=== PATIENT | female | born 1955 | race Caucasian/White ===

== ENCOUNTER → 2023-04-11 11:04 | Outpatient (CLI) | payer MEDICARE, OTHER, SELFPAY ==
[2023-04-11 12:42] LABS: Add Manual Diff / Slide Review NO; Basophils Absolute Auto 0 /uL (0-100); Basophils Percent Auto 0.5 % (0-2); Eosinophils Absolute Auto 100 /uL (0-450); Eosinophils Percent Auto 1.3 % (2-4); Hematocrit 37.7 % (36-46); Hemoglobin 13.1 g/dL (12.0-16.0); Lymphocytes Absolute Auto 1300 /uL (1100-4500); Lymphocytes Percent Auto 26.5 % (25-40); Mean Corpuscular HGB Conc 34.8 % (30-36); Mean Corpuscular Hemoglobin 31.4 PG (26-34); Mean Corpuscular Volume 90.2 fL (80-100); Monocytes Absolute Auto 600 /uL (0-900); Monocytes Percent Auto 11.3 % (3-14); Neutrophils Absolute Auto 3000 /uL (1500-7000); Neutrophils Percent Auto 60.4 % (50-75); Platelet Count 332 X10^3/uL (150-400); Red Blood Cell Count 4.18 X10^6/uL (4.0-5.2)
[2023-04-11 13:02] LABS: BUN Creatinine Ratio 20.7 (6-22); Blood Urea Nitrogen 12 mg/dL (7-17); Calcium 9.7 mg/dL (8.4-10.2); Carbon Dioxide 25 mmol/L (22-32); Chloride 92 mmol/L (98-107); Estimated Glomerular Filt Rate > 60 mL/min (>60); Glucose 97 mg/dL (80-110); HEMOLYSIS < 15 (0-50); Sodium 126 mmol/L (137-145)
[2023-04-11 13:03] LABS: Potassium 5.4 mmol/L (3.4-5.1)
[2023-04-11 14:31] LABS: Appearance Urine UA CLEAR; Bilirubin Urine UA NEGATIVE (NEGATIVE); Color Urine UA YELLOW; Glucose Urine UA NEGATIVE (Negative); Ketones Urine UA NEGATIVE (NEGATIVE); Leukocyte Esterase Urine UA NEGATIVE (NEGATIVE); Nitrite Urine UA NEGATIVE (Negative); Occult Blood Urine UA NEGATIVE (Negative); Protein Urine UA NEGATIVE (Negative); Urobilinogen Urine UA 0.2 E.U./dL (0.2)
[2023-04-12 07:07] LABS: x Labcorp Estim. Avg Glu (eAG) 114 mg/dL (.); x Labcorp Hemoglobin A1c 5.6 % (4.8-5.6)
== END ==
PROVIDERS: PCP Student in an Organized Health Care Education/Training Program; Referring Provider Orthopaedic Surgery; Visit Provider Orthopaedic Surgery
DX: Z01.818 Encounter for other preprocedural examination (principal); R73.9 Hyperglycemia, unspecified; Z01.812 Encounter for preprocedural laboratory examination; N39.0 Urinary tract infection, site not specified; Z77.018 Contact with and (suspected) exposure to other hazardous metals
CPT/HCPCS: 36415; 80048; 81003; 83036; 85025; 93005

== ENCOUNTER 2023-06-14 06:25 | Day surgery (SDC) | payer MEDICARE, OTHER, SELFPAY ==
[2023-05-28 07:47] VITALS: BMI 18.6
[2023-06-14] VITALS (12 sets, daily range): BP systolic 125–190; BP diastolic 72–92; PULSE 68–87; RESP 12–20; TEMP 36.3–37.1; O2SAT 97–100; BMI 18.3
--- NOTE | 2023-06-14 | DI.RAD.S_ITS ---
PROCEDURE: XR HIP W PEL IF DONE RT 2V INDICATIONS: total hip arthroplasty placement TECHNIQUE: 2 views of the hip were acquired. COMPARISON: None. FINDINGS: Fluoroscopic guidance utilized for a right total hip arthroplasty. The component appears well aligned. IMPRESSION: Fluoroscopic guidance. Dictated by: Micah Hassan M.D. on 06/14/2023 at 10:50 Approved by: Micah Hassan M.D. on 06/14/2023 at 10:50
--- NOTE | 2023-06-14 06:00 | DI.RAD.S_ITS ---
PROCEDURE: XR HIP W PEL IF DONE RT 2V INDICATIONS: Right total hip arthroplasty TECHNIQUE: 2 views of the hip were acquired. COMPARISON: [facility], , XR HIP W PEL IF DONE RT 2V, 06/14/2023, 9:05. FINDINGS: Bones: Right total hip arthroplasty in good position. Left hip arthroplasty unchanged. Pelvic ring intact Soft tissues: No suspicious soft tissue calcifications or masses. Overlying postprocedural soft tissue air IMPRESSION: Total right hip arthroplasty in good position Approved by: Vaughn Washington M.D. on 06/14/2023 at 10:58
[2023-06-14] MEDS: CELECOXIB 200 MG CAPSULE PO (06:46)
[2023-06-14] MEDS: ACETAMINOPHEN 325 MG TABLET 975 MG PO (06:46)
[2023-06-14] MEDS: LACTATED RINGERS 1,000 ML 42 ML IV ×2 (06:49→09:56)
[2023-06-14] MEDS: VANCOMYCIN 1,000 MG/200 ML PIGGYBACK 200 MG IV (07:08)
--- NOTE | 2023-06-14 07:42 | P.OP_ITS ---
Operative Date/Time/Diagnoses Date of procedure: 06/14/23 Time of procedure: 08:00 Pre-op diagnosis: Severe right hip OA Post-op diagnosis: same Procedure & Clinicians Procedure: Right total hip arthroplasty anterior approach Same procedure as scheduled: Yes Indications: The patient has had progressively worsening right hip pain with radiographic changes consistent with arthritis. Non-operative management has failed and the patient has requested total hip replacement. The risks, benefits and alternatives to surgery were discussed with the patient prior to proceeding. Risks discussed included, but were not limited to, failure to relieve pain, leg length discrepancy, dislocation, stiffness, infection, nerve damage, deep venous thrombosis, pulmonary embolism, stroke, coma, heart attack, permanent paralysis and , as well as the potential need for eventual revision of the prosthetic. Surgeon: Tana Whitehead Legal Financial Specialist: Israel Camilo Anesthesia Type: General and Spinal Operative Notes Findings: Right total hip arthroplasty anterior approach Closure Type: primary Specimen(s): none sent Prosthetic devices, grafts, tissues, transplants, or devices: [employer] R3 50 cup, neutral poly liner, 32 x -3 Oxinium head,two 6.5 mm screws, size 1 standard collar polar stem Estimated Blood Loss (mL): 250 Blood products transfused: none Procedure in detail: The patient was brought to the operating room. Patient was carefully positioned in the supine position. Time-out was performed and antibiotics were given. Anesthesia was induced. She was positioned in the on the table in order to allow hyperextension of the hip. The right lower extremity was prepped and draped in a standard sterile fashion. An anterior right hip incision was made 1 fingerbreadth lateral to the anterior superior iliac spine and extended distally towards the greater trochanter. Dissection was carried out through skin and subcutaneous tissues. Superficial hemostasis was achieved. The fascia over the tensor fascia zach was defined and incised with a knife. Two Allis clamps were used to grasp the fascia. Tensor fascia zach was retracted laterally. A gelpi retractor was placed. Dissection was carried out down along the neck. The circumflex vessels were carefully identified and cauterized with the Aqua Mantis. There was good visualization of the femoral neck. A Cobra was placed superior to the neck and the gluteus fibers were carefully stripped from that superior aspect of the capsule. A 2nd retractor was placed along the inferior aspect of the neck. The rectus insertion along the capsule was partially released. A 3rd retractor that was then gently placed over the rim of the acetabulum under the rectus. Capsule was carefully incised and released from the intertrochanteric line circumferentially superior to the mid sagittal line and inferiorly to the mid sagittal line until the lesser trochanter was palpable. A tag stitch was placed both in the superior and inferior limb of the capsular insertion. Along the acetabulum capsule was also released up to the mid sagittal 12:00 position. A portion of the labrum was resected. A saw was used to perform an osteotomy at the level of the intertrochanteric line and the junction of the superior femoral neck leaving approximately 1 finger breath of residual inferior neck above the lesser trochanter. A 2nd cut was made along the femoral neck at the base of the head and a napkin ring of neck was removed. Corkscrew was placed in the femoral head and the head was removed without difficulty. Retractors were then repositioned around the acetabulum. Residual labrum was resected and additional osteophytes were removed. A reamer that was 4 mm below the templated size was placed by hand in the acetabulum and it was reamed to centralize the acetabulum. It was then reamed up to 2 under the templated size and fluoroscopy was brought in to confirm the position of the reaming and depth of reaming. I reamed 1 under the anticipated size and touched the rim with line to line reaming. A trial cup was placed and noted that it was appropriately sized and fluoroscopy confirmed position and depth. The component was open and inserted without diff iculty fluoroscopic imaging was used to confirm that the cup had been adequately seated and was well positioned. It was further stabilized with 2 screws. Neutral poly liner was placed. The cup was tested and noted to be stable. Attention was then directed to the femur. The femur was gently hyperextended additional capsular release was performed as needed in order to allow adequate visualization of the proximal femur with elevation of the femur. Patient was placed in a hyperextended slightly adducted position with maximum external rotation. Box osteotome was used to check for any residual neck as well as sclerotic bone along the trochanter. [place] pepper was placed in the femur. Additional broaching was performed. Canal finder was used to determine the alignment of the canal and position. Size 1 broach was placed. The canal was then appropriately broached up to the templated size as long as there was adequate stability of the broach and serial advancement of the broach without excessive impingement. Specific attention was directed at avoiding varus attempting to direct the distal aspect of the broach more anteriorly and avoiding excessive anteversion. Trial reduction showed acceptable range of motion, good stability, no posterior impingement, restorationism of leg length and appropriate lateral shuck. I also hyperflexed the hip and checked that there was no impingement anteriorly and there was good stability with flexion, adduction and internal rotation. Marcaine and Exparel were injected. The stem was placed without difficulty. Repeat trial reduction and x-ray showed acceptable overall position, length, and no evidence of the femoral fracture. Final head was placed. Wound was meticulously irrigated with normal saline. The hip was reduced and additional Exparel and Marcaine were injected. The capsule was closed with interrupted nonabsorbable sutures. The fascia of the tensor was closed with interrupted and running Vicryl. No drain was placed. Any tensor fascia zach muscle that appeared to be contused or injured which was a minimal amount was carefully resected. Capsule around the tensor was injected with Exparel and Marcaine. The skin was closed with barbed stitches for the subcutaneous tissue and skin. We also used surgical glue. The wound was dressed sterilely. Brief Betadine soak was also used and was meticulously irrigated with normal saline. Patient was transferred to recovery room in satisfactory condition. Complications: none Post-operative Condition: stable Disposition: Acute Care Plan for aftercare: The patient will be maintained on a standard total hip replacement protocol with weight bearing as tolerated and anterior hip precautions. The patient will receive Aspirin and sequential compression devices for DVT prophylaxis. The patient will be discharged home when safe for the home environment.
--- NOTE | 2023-06-14 07:42 | PM.PREOP ---
Pre-operative Note Interval Note History & Physical reviewed/Exam performed by Physician: Yes Changes to H&P: No
[2023-06-14] MEDS: CEFAZOLIN 2 GM/100 ML PREMIX 100 ML IV ×3 (08:00→23:19)
--- NOTE | 2023-06-14 08:33 | SUR.OPER ---
Supine on padded Kinderhook table with bilateral legs secured in padded positioning boots and suspended in positioning spars, operative leg in traction per surgeon. Head on one pillow. Arm on non-operative side secured on padded armboard <90 degrees abduction. Arm on operative side padded and resting across chest then secured with tape over sheet. Padded perineal post in place per surgeon.
[2023-06-14] MEDS: TRANEXAMIC ACID 1,000 MG VIAL 2000 MG INJ ×2 (08:40→09:54)
[2023-06-14] MEDS: BUPIVACAINE 0.25% (PF) 30 ML, EPINEPHrine 0.3 MG INJ (08:41)
[2023-06-14] MEDS: BUPIVACAINE LIPOSOME 266 MG/20 ML VIAL INJ (09:55)
[2023-06-14] MEDS: HYDROMORPHONE 1 MG INJ IV ×4 (10:33→10:48)
[2023-06-14] MEDS: fentaNYL 100 MCG/2 ML INJ IV ×3 (10:49→10:59)
--- NOTE | 2023-06-14 11:29 | SUR.PHASEI ---
Dr Garay notified of blood pressure 173/84. No new orders. Dr Garay instructed no blood pressure medication to be given.
[2023-06-14] MEDS: ACETAMINOPHEN 325 MG TABLET 650 MG PO ×3 (12:01→23:19)
[2023-06-14] MEDS: IBUPROFEN 400 MG TABLET PO ×4 (12:01→23:19)
[2023-06-14] MEDS: LACTATED RINGERS 1,000 ML 100 ML IV ×2 (12:01→20:43)
--- NOTE | 2023-06-14 15:10 | PT.IIE ---
Current Diagnoses Unilateral primary osteoarthritis, right hip (06/14/23) Surgery Performed Operation Date: 06/14/23 07:45 Actual Procedures p Total Hip Arthroplasty/Anterior Approach(Right) - Tana Whitehead MD Surgical History (Last Updated 05/28/23 @ 08:07 by Sree Miranda, RN) History of colonoscopy History of left hip replacement Medical History (Last Updated 05/28/23 @ 08:04 by Sree Miranda, MILLER) Acid reflux Physical Therapy Inpatient Evaluation/Re-Eval M1 PT/OT-IP Prior Functional Status Start: 06/14/23 15:19 Freq: NEEDED Status: Active Protocol: Document 06/14/23 15:19 AB (Rec: 06/14/23 15:57 AB [id number]) Medical Review Prior Functional Status Medical History Reviewed Yes Communication Pt is able to express all needs. Mobility and Gait Pt was ambulating independently prior to surgery . Activities of Daily Living and IADL's IND with all ADLs and IADLs. Social History Household Members spouse Living Arrangements House Number of Floors (Floors) Two Floors Number of Stairs To Enter/Railing? 2 NETTE without hand rails Home Environment High Toilet,Walk in Shower, Built-In Shower Seat Home Equipment Front Wheel Walker,Grab Bars In Shower Additional Social History Comment Pt lives with spouse who can assist 02/04 if needed. Their bedroom is on the 2nd floor which is 14 steps with right hand rail. They may be able to accommodate her on the first floor (sleep in recliner, however 1st floor bathroom is tub/shower combo). M2 PT-IP Current Condition Start: 06/14/23 15:19 Freq: NEEDED Status: Active Protocol: Document 06/14/23 15:19 AB (Rec: 06/14/23 15:57 AB [id number]) Physical Therapy Current Condition Current Condition Evaluation Date 06/14/23 Treatment Diagnosis s/p right anterior TOM Onset Date 06/14/23 M3 PT-IP Subjective Start: 06/14/23 15:19 Freq: NEEDED Status: Active Protocol: Document 06/14/23 15:19 AB (Rec: 06/14/23 15:57 AB [id number]) Subjective Physical Therapy Visit Type Type Initial Evaluation Visit Start Time 13:59 Visit Stop Time 15:10 Total Visit Minutes 71 Physical Therapy Visit Comments Patient Comments Pt presents semi supine in bed and is agreeable to PT eval this morning. She reports her RLE is still feeling a little numb but denies any other symptoms. Therapy Pain Assessment Pain When Pain Assessed During Exercise Pain Present Pain Present Pain Reported Location Right Hip Intensity 3 Scale Used Numeric (0 - 10) Pain Management Techniques Modification of Treatment M4 PT-IP Mobility and Gait Start: 06/14/23 15:19 Freq: NEEDED Status: Active Protocol: Document 06/14/23 15:19 AB (Rec: 06/14/23 15:57 AB [id number]) PT-Bed Mobility Assessment Rolling Type of Rolling Bilateral Level of Assist Standby Assistance Supine to Sit Supine to Sit Standby Assistance Sit to Supine Sit to Supine Standby Assistance Scooting Scooting to Edge of Bed Standby Assistance PT-Transfer Assessment Sit to and From Stand Sit to and from Stand Standby Assistance,Use of Upper Extremities Equipment Transfer Assistive Device Front Wheeled Walker Transfers Transfer Destination Bed,Chair,Toilet Transfer Technique Stand Step Pivot Transfer Ability Level of Assist Standby Assistance,Use of Upper Extremities Comments Mobility Comments BP was assessed in supine, sitting and standing, with no abnormalities noted and pt denying symptoms of lightheadedness or dizziness throughout session. The pt was able to perform bed mobility with SBA, but required use of gait belt to help mobilize RLE due to weakness. Once at EOB, the pt reports needing to use bathroom, therefore she performed STS with SBA using FWW, and was able to ambulated 10ft to transfer to toilet with SBA. Pt performed STS from toilet with FWW and transferred to chair. After a break, the pt completed ambulation and stairs as below . Upon returning to room, pt performed sit<>supine with SBA . At end of session, pt's needs were met, call light was placed within reach, and is at bedside. Gait Assessment Gait Gait Assistance Required: Standby Assistance Distance (Feet) 150 Able to Maintain Weight Bearing Status Yes During Gait Assistive Devices Assistive Device Gait Belt,Front Wheeled Walker Gait Deviations General Gait Pattern Within Normal Limits,Antalgic, Decreased Stride Length, Decreased Feet Clearance, Flexed Trunk,Step-to Gait Factors Limiting Gait Function Factors Limiting Gait Function Decreased Activity Tolerance, Decreased Strength,Limited Range of Motion,Pain Comments Gait Comments Gait deviations are consistent with surgical procedure and precautions. Stair Climbing Assessment Evaluation Level of Assist On Stairs Standby Assistance Devices Stair Climbing Assistive Devices Left Railing Technique/Endurance Stair Climbing Direction Ascend and Descend Stair Climbing Technique Step to Step Number of Steps Climbed 3 Query Text: Stair Climbing Set # Repetitions (reps) 1 Comments Stair Climbing Comments Pt is able to ascend/descend 3 steps with 1 hand rail after education regarding leading with nonsurgical side to ascend and with surgical side to descend. After completing 1 set, pt reports 4/10 pain in hip, therefore would not to attempt additional sets today. PT-Balance Assessment Sitting Balance and Reactions Static Sitting Balance Ability Normal Dynamic Sitting Balance Ability Good Standing Balance and Reactions Static Standing Balance Ability Good Dynamic Standing Balance Ability Fair Device Used FWW M5 PT-IP Objective Assessments Start: 06/14/23 15:19 Freq: NEEDED Status: Active Protocol: Document 06/14/23 15:19 AB (Rec: 06/14/23 15:57 AB [id number]) Orientation Orientation/Cognition Level of Alertness Alert Orientation Name,Age,Birthday,Month,Date, Year,Day of Week,Place, Situation Language Function Ability No Deficits Noted Safety Awareness Understands Safety Issues Memory Description No Deficits Noted Comments Pt is able to recall precautions and education provided at end of session. Gross Range of Motion Upper Extremity ROM Assessment Within Functional Limits Lower Extremity ROM Assessment Right Impaired Strength Upper Extremity Strength Assessment Within Functional Limits Lower Extremity Strength Assessment Right Impaired M6 PT-IP Treatment Start: 06/14/23 15:19 Freq: NEEDED Status: Active Protocol: Document 06/14/23 15:19 AB (Rec: 06/14/23 15:57 AB [id number]) Physical Therapy Treatment Education Education Provided Precautions,Weight Bearing Status,Post-Op Packet,Safety Brace Education Patient,Caregiver M7 PT-IP Assessment and Plan Start: 06/14/23 15:19 Freq: NEEDED Status: Active Protocol: Document 06/14/23 15:19 AB (Rec: 06/14/23 15:57 AB [id number]) PT Summary Assessment and Plan Potential Rehabilitation Potential Good Status of Condition at Evaluation Stable Summary Impairments Pain,ROM,Strength,Balance,Bed Mobility,Transfers,Gait, Activity Tolerance Assessment Summary Margaret Farrar is a 67 year old female patient who is s/p right anterior hip TOM performed on 06/14/23. Today's PT evaluation revealed signs and symptoms consistent with this surgical procedure including RLE ROM deficits, weakness and pain symptoms, which are limiting her ability to perform functional mobility independently. The pt currently requires SBA for all functional mobility, including use of a FWW for STS , transfers and ambulation. She was able to ambulated 150ft with FWW and ascend/ descend 3 steps with 1 hand rail. Based on her current level of function, PT recommends discharge to home with assistance and outpatient PT. The pt would benefit from skilled PT during her hospitalization to improve to her highest level of function. Goals Bed Mobility Goal Independent Transfer Goal Independent Gait Goal Independent,Front Wheel Walker Gait Distance 200 Days to Meet Goals 5 Frequency of Treatment Frequency Of Treatment Twice a Day Treatment Plan Physical Therapy Treatment Plan Bed Mobility Training,Transfer Training,Gait Training, Therapeutic Exercise,Balance Retraining,Post Op Education, Discharge Planning,Hot or Cold Pack,Neuromuscular Re-ed, Coordination Retraining,Manual Therapy Precautions Anterior Hip Precautions No Hip Extension,No Hip External Rotation Weight Bearing Status Weight Bearing Status Weight Bear as Tolerated Recommendations To Nursing Amount of Assist Needed Standby Assistance,1 Person Assist Discharge Recommendations PT Discharge Recommendations Home with Assistance, Outpatient PT Transportation Needs at Discharge Private Vehicle
[2023-06-14] MEDS: OXYCODONE IR 5 MG TABLET PO (15:38)
--- NOTE | 2023-06-14 16:03 | PC.NURSE ---
Day shift: This RN assumed care of patient at 1600 from RN Kory Webb who admitted patient from PACU at 1150AM. 4/5 strength on RLE, no numbness. Rating pain 5/10, 5mg oxy given. Brown mottling noted all over patient's back - patient reports that was not there before surgery. Not red, raised, painful or itching. Notified ARTURO Argueta via phone who stated she would look at it tomorrow AM. Pt OOB with 1PA + FWW. Voiding in toilet. Tolerating general diet. Will continue to monitor.
--- NOTE | 2023-06-14 16:49 | OT.IP.EVAL ---
Current Diagnoses Unilateral primary osteoarthritis, right hip (06/14/23) Surgery Performed Operation Date: 06/14/23 07:45 Actual Procedures p Total Hip Arthroplasty/Anterior Approach(Right) - Tana Whitehead MD Past Medical History (Last Updated 05/28/23 @ 08:04 by Sree Miranda, RN) Acid reflux Surgical History (Last Updated 05/28/23 @ 08:07 by Sree Miranda, RN) History of colonoscopy History of left hip replacement Occupational Therapy Inpatient Evaluation/Re-Eval M1 PT/OT-IP Prior Functional Status Start: 06/14/23 16:49 Freq: NEEDED Status: Active Protocol: Document 06/14/23 16:15 [facility]3] (Rec: 06/14/23 17:03 [facility]3] [id number]) Medical Review Prior Functional Status Medical History Reviewed Yes Communication Pt is able to express all needs. Mobility and Gait Pt was ambulating independently prior to surgery . Activities of Daily Living and IADL's IND with all ADLs and IADLs but had pain. Social History Household Members spouse Living Arrangements House Number of Floors (Floors) Two Floors Number of Stairs To Enter/Railing? 2 NETTE without hand rails Home Environment High Toilet,Walk in Shower, Built-In Shower Seat Home Equipment Front Wheel Walker,Grab Bars In Shower Additional Social History Comment Pt lives with spouse who can assist 02/04 if needed. Their bedroom is on the 2nd floor which is 14 steps with right hand rail. They may be able to accommodate her on the first floor (sleep in recliner, however 1st floor bathroom is tub/shower combo). M2 OT-IP Current Condition Start: 06/14/23 16:49 Freq: Status: Active Protocol: Document 06/14/23 16:15 [facility]3] (Rec: 06/14/23 17:03 [facility]3] [id number]) Occupational Therapy Current Condition Current Condition Evaluation Date 06/14/23 Treatment Diagnosis S/P R TOM anterior approach Diagnosis Onset Date 06/14/23 Post Operative Precautions Anterior Hip Precautions No Hip Extension,No Hip External Rotation M3 OT- IP Subjective and Pain Start: 06/14/23 16:49 Freq: Status: Active Protocol: Document 06/14/23 16:15 [facility]3] (Rec: 06/14/23 17:03 [facility]3] [id number]) OT- Subjective Occupational Therapy Visit Type Type Initial Evaluation Visit Start Time 16:15 Visit Stop Time 16:49 Total Visit Minutes 34 Occupational Therapy Visit Comments Patient Comments Pt agreed to get up for dinner . Patient/Caregiver Goals TO go home. OT Pain Assessment Pain When Pain Assessed During Mobility Pain Present Pain Present Pain Reported Location Right Hip Intensity 5 Scale Used Numeric (0 - 10) M4 OT- IP ADL's Start: 06/14/23 16:49 Freq: Status: Active Protocol: Document 06/14/23 16:15 [facility]3] (Rec: 06/14/23 17:03 [facility]3] [id number]) OT [id number] Comments OT Self-Feeding Comments Not at meal time, no issues anticipated. OT ADL-Grooming Comments OT Grooming Comments Pt states did earlier. OT ADL-Oral Care Comments Oral Care Comments Pt states did earlier. OT ADL-Dressing General Eval Lower Body Dressing Ability Moderate Assistance Comments OT Dressing Comments At this time due to pain, pt needing assist to get clothing items over her feet. Educated pt on LB dressing equipment, otherwise her is available to assist . OT ADL-Toileting Comments OT Toileting Comments Not performed. Pt would benefit from a BSC at home as the toilet is 30ft away from the recliner if sleeping downstairs. OT ADL-Bathing Comments OT Bathing Comments A shower chair would be beneficial for the pt. M5 OT- IP IADL's Start: 06/14/23 16:49 Freq: Status: Active Protocol: Document 06/14/23 16:15 [facility]3] (Rec: 06/14/23 17:03 [facility]3] [id number]) OT-Instrumental Activities of Daily Living Deficits IADL Deficits Identified Deficits Home Safety Awareness Awareness of Need for Assistance at Home Good Awareness Ability to Problem Solve Emergency Able to Problem Solve Situations Home Safety Comments Pt a little groggy at this time as just having surgery today and her will assist at home for her needs. M6 OT- IP Functional Cognition Start: 06/14/23 16:49 Freq: Status: Active Protocol: Document 06/14/23 16:15 [facility]3] (Rec: 06/14/23 17:03 [facility]3] [id number]) Cognitive Factors Limiting Selfcare Function Cognitive Ability Level of Alertness Alert Patient Orientation Name,Age,Birthday,Month,Date, Year,Day of Week,Place, Situation Attention Span Ability Capable of Focused Attention, Capable of Sustained Attention Ability to Follow Commands Able to Follow One Step Commands Safety Awareness Decreased Ability to Apply Precautions Cognitive Comments Cognitive Assessment Comments Pt still groggy from surgery and needing reminders of how to incorporate her hip precautions for ADL and mobility needs. OT- Vision and Hearing OT- Hearing Assessment OT- Hearing Assessment WFL OT- Vision Assessment Visual Acuity Glasses All The Time M7 OT- IP Mobility and Balance Start: 06/14/23 16:49 Freq: Status: Active Protocol: Document 06/14/23 16:15 [facility]3] (Rec: 06/14/23 17:03 [facility]3] [id number]) OT- Bed Mobility Assessment Supine to Sit Supine to Sit Assist Standby Assistance OT-Transfer Assessment Sit to and From Stand Sit to and from Stand Standby Assistance Transfers Transfer Ability Standby Assistance Technique Transfer Destination Bed,Chair Devices Transfer Assistive Devices Gait Belt,Front Wheeled Walker Comments Mobility Comments SBA to get out on the left side of the bed , pt able to keep her legs together while getting to the edge of the bed . SBA to stand and vc to use at least one hand to help push off the bed to stand.SBA with FWW. OT- Balance Assessment Sitting Balance and Reactions Static Sitting Balance Ability Normal Dynamic Sitting Balance Ability Good Standing Balance and Reactions Static Standing Balance Ability Good Dynamic Standing Balance Ability Fair M8 OT- IP Objective Assessments Start: 06/14/23 16:49 Freq: Status: Active Protocol: Document 06/14/23 16:15 [facility]3] (Rec: 06/14/23 17:03 [facility]3] [id number]) OT Gross Range of Motion Upper Extremity Range of Motion Assessment Within Functional Limits OT Strength Upper Extremity Strength Assessment Within Functional Limits OT-Muscle Tone Assessment Muscle Tone WNL Yes M9 OT- IP Assessment and Plan Start: 06/14/23 16:49 Freq: Status: Active Protocol: Document 06/14/23 16:15 [facility]3] (Rec: 06/14/23 17:03 [facility]3] [id number]) OT Summary Assessment and Plan Potential Rehabilitation Potential Excellent Analytic Complexity at Evaluation Low Summary OT Impairments Pain,Strength,Balance, Functional Mobility,Grooming, Dressing,Toileting,Bathing, Toilet Transfers,Shower Transfers,Activity Tolerance Progress Towards Goals Progressing Toward Goals Assessment Summary Pt low complexity and main barriers are pain, steps needing reminders to incorporate her precautions for mobility needs. Pt will benefit from getting a BSC and possibly a shower chair. Pt to go home with her when medically stable and have outptPT. Goals Grooming Goal Independent Dressing Goal Independent Toileting Goal Independent Bathing Goal Independent Toilet Transfer Goal Independent Shower Transfer Goal Independent Days to Meet Goals 5 Frequency of Treatment Frequency Of Treatment Once a Day Treatment Plan OT Treatment Plan ADL Training,Functional Mobility,Patient/Family Education,Discharge Planning Discharge Recommendations OT Discharge Recommendations Home with Assistance, Outpatient PT Home Equipment Needs BSC, shower chair Transportation Needs at Discharge Private Vehicle
[2023-06-14] MEDS: ASPIRIN EC 81 MG TABLET PO (20:35)
[2023-06-14] MEDS: DOCUSATE 100 MG CAPSULE PO (20:36)
[2023-06-15] MEDS: OXYCODONE IR 5 MG TABLET PO ×4 (03:06→11:22)
[2023-06-15] MEDS: IBUPROFEN 400 MG TABLET PO ×3 (03:06→10:51)
[2023-06-15] MEDS: ACETAMINOPHEN 325 MG TABLET 650 MG PO ×2 (05:58→10:53)
[2023-06-15] MEDS: PANTOPRAZOLE DR 20 MG TABLET PO (05:58)
[2023-06-15 06:08] LABS: Hematocrit 29.8 % (36-46); Hemoglobin 10.4 g/dL (12.0-16.0)
--- NOTE | 2023-06-15 07:44 | PM.PNPO.1 ---
Subjective Subjective Date Patient Seen: 06/15/23 Time Patient Seen: 07:44 Interval history: Pain is [id number]. Denies fever or chills. No nausea or vomiting. Patient's is home and available to assist her. Exam Vital Signs (past 8 hours): Oxygen Delivery Method Room Air Oxygen Flow Rate 0 Narrative Exam Narrative: 67-year-old up at bedside seeing in no apparent distress. Motor functions intact bilateral lower extremities. Dressing is clean, dry and intact. Const General: cooperative and comfortable Nutritional Appearance: average body habitus Orientation: alert Resp Effort & Inspection: normal respiratory effort and able to speak in complete sentences Objective Labs 06/15/23 05:43 Labs: Laboratory Results - last 24 hr 06/15/23 05:43 Hgb 10.4 L Hct 29.8 L PFSH Medical History Acid reflux Surgical History History of colonoscopy History of left hip replacement Social History household members: spouse Smoking Status: Former smoker alcohol intake: current Assessment & Plan Post-op Postoperative Procedures: Procedures Operation Date: 06/14/23 07:45 Actual Procedure Side Surgeon p Total Hip Arthroplasty/Anterior Approach Right Tana Whitehead MD Postoperative day: 1 Postoperative status: doing well Postoperative status narrative: Stable status post total hip arthroplasty Postoperative plan narrative: Mobilize with physical therapy, anterior hip precautions Multimodal pain management Disposition likely home today or tomorrow.
[2023-06-15 08:00] VITALS: BP 121/69; PULSE 66; RESP 18; TEMP 36.1; O2SAT 99
[2023-06-15] MEDS: ASPIRIN EC 81 MG TABLET PO (08:56)
[2023-06-15] MEDS: DOCUSATE 100 MG CAPSULE PO (08:56)
--- NOTE | 2023-06-15 09:28 | PT.IPTN ---
Current Diagnoses Unilateral primary osteoarthritis, right hip (06/14/23) Surgery Performed Operation Date: 06/14/23 07:45 Actual Procedures p Total Hip Arthroplasty/Anterior Approach(Right) - Tana Whitehead MD Physical Therapy Treatment Note M2 PT-IP Current Condition Start: 06/14/23 15:19 Freq: NEEDED Status: Discharge Protocol: Document 06/14/23 15:19 AB (Rec: 06/14/23 15:57 AB [id number]) Physical Therapy Current Condition Current Condition Evaluation Date 06/14/23 Treatment Diagnosis s/p right anterior TOM Onset Date 06/14/23 M3 PT-IP Subjective Start: 06/14/23 15:19 Freq: NEEDED Status: Discharge Protocol: Document 06/15/23 09:28 AB(2) (Rec: 06/15/23 13:56 AB(2) [id number]) Subjective Physical Therapy Visit Type Type Treatment Note Visit Start Time 09:28 Visit Stop Time 10:45 Total Visit Minutes 73 Number of COMPOSITE SCIENCE TEACHER Visits 0 Physical Therapy Visit Comments Patient Comments agreeable to do PT Therapy Pain Assessment Pain When Pain Assessed During Mobility Pain Present Pain Present Pain Reported Location Right Hip Scale Used severe during mobility Pain Behaviors Guarding,Holding Area, Restlessness,Wincing Pain Management Techniques Apply Cold,Distraction, Modification of Treatment,Re- positioning,Timing of Activity with Medications M4 PT-IP Mobility and Gait Start: 06/14/23 15:19 Freq: NEEDED Status: Discharge Protocol: Document 06/15/23 09:28 AB(2) (Rec: 06/15/23 13:56 AB(2) [id number]) PT-Bed Mobility Assessment Supine to Sit Supine to Sit Standby Assistance Sit to Supine Sit to Supine Minimal Assistance PT-Transfer Assessment Sit to and From Stand Sit to and from Stand Contact Guard Assistance, Minimal Assistance,1 Person Assistance,Use of Upper Extremities Equipment Transfer Assistive Device Gait Belt,Front Wheeled Walker Orthotic/Prosthetic Devices or Brace: No Transfers Transfer Destination Chair Transfer Technique ambulated Transfer Ability Level of Assist Contact Guard Assistance,1 Person Assistance,Use of Upper Extremities Comments Mobility Comments found pt standing by the EOB with FWW and spouse with pt. spouse stated that he just assisted pt with pulling her pants up. pt sat on EOB. asked pt regarding hip precautions and pt recalled 1/ 2. educated pt and spouse again anterior hip precautions . caregiver training conducted pt completed supine to sit min A with LE elevation. educated pt and spouse on techniques for bed mobility pt completed supine to sit SBA and cues. educated spouse on how to use safety belt and how to assist pt. spouse was able to put safety belt on pt and assisted pt with sit to stand min A. instructed pt to sit back down and pt plopped down. educated pt on safety and sit< >stand techniques. educated spouse to instruct pt as needed. pt with slight confusion and seems to get anxious easily. completed sit to stand again with spouse assisting and completed CGA to min A. pt ambulated using FWW min A ~ 50 ft. pt tends to tip toe on RLE and educated on WBAT and safety. pt sat down on w/c. educated pt and spouse with stair climbing. pt and spouse first stated that they have 2 steps to enter the house without rails and educated on how to do stairs using SPC and RAIL ENGINEER. Afterwards, spouse stated that they can go in from the garage with only one step to enter. educated pt and spouse again on how to do stairs pt completed up/down platform step assisting using FWW min to mod A and max cues. spouse was able to assist pt . pt with c/o increasing R hip pain. pt sat back on chair. educated on up/down steps using R rail ascending. informed pt and spouse that pt might not be able to complete 14 steps to bedroom and safer for pt to stay on the first level. pt and spouse informed that evaluating PT yesterday that is an option for pt if needed but when this PT informed spouse, spouse stated that pt has to go upstairs. pt completed up/down steps holding on to R rail with B hands max A and max cues and only completed 2 steps. assisted pt back on w/c. pt with c/o increase hip pain. informed spouse that pt is not safe climbing up 14 steps to bedroom level and at this time needs to stay on first level of the house. spouse stated that there is no bed on first level. asked spouse if there is a recliner and spouse stated yes and informed spouse that pt can sleep on the recliner for now. spouse understood. assisted pt back to the room. completed sit to stand from w/ c with spouse assisting and ambulated back to chair using FWW. positioned pt on the chair. call light and table placed within reach. Gait Assessment Gait Gait Assistance Required: Contact Guard Assist,Minimum Assistance Distance (Feet) 100 Able to Maintain Weight Bearing Status Yes During Gait Assistive Devices Assistive Device Gait Belt,Front Wheeled Walker Orthotic/Prosthetic Devices or Brace: No Gait Deviations General Gait Pattern Antalgic,Decreased Feet Clearance,Narrow Based Gait Factors Limiting Gait Function Factors Limiting Gait Function Decreased Activity Tolerance, Decreased Strength,Difficulty Following Directions,Limited Range of Motion,Pain,Poor Balance Stair Climbing Assessment Evaluation Level of Assist On Stairs Moderate Assistance,Maximal Assistance,1 Person Assistance Devices Stair Climbing Assistive Devices Front Wheel Walker,Right Railing Technique/Endurance Stair Climbing Direction Ascend and Descend Stair Climbing Technique Step to Step Number of Steps Climbed 2 Stair Climbing Set # Repetitions (reps) 1 M5 PT-IP Objective Assessments Start: 06/14/23 15:19 Freq: NEEDED Status: Discharge Protocol: Document 06/14/23 15:19 AB (Rec: 06/14/23 15:57 AB [id number]) Orientation Orientation/Cognition Level of Alertness Alert Orientation Name,Age,Birthday,Month,Date, Year,Day of Week,Place, Situation Language Function Ability No Deficits Noted Safety Awareness Understands Safety Issues Memory Description No Deficits Noted Comments Pt is able to recall precautions and education provided at end of session. Gross Range of Motion Upper Extremity ROM Assessment Within Functional Limits Lower Extremity ROM Assessment Right Impaired Strength Upper Extremity Strength Assessment Within Functional Limits Lower Extremity Strength Assessment Right Impaired M6 PT-IP Treatment Start: 06/14/23 15:19 Freq: NEEDED Status: Discharge Protocol: Document 06/15/23 09:28 AB(2) (Rec: 06/15/23 13:56 AB(2) [id number]) Physical Therapy Treatment Education Education Provided Precautions,Weight Bearing Status,Safety M7 PT-IP Assessment and Plan Start: 06/14/23 15:19 Freq: NEEDED Status: Discharge Protocol: Document 06/15/23 09:28 AB(2) (Rec: 06/15/23 13:56 AB(2) [id number]) PT Summary Assessment and Plan Potential Rehabilitation Potential Fair Summary Impairments Pain,ROM,Strength,Balance, Coordination,Sensation,Tone, Cognition,Bed Mobility, Transfers,Gait,Activity Tolerance Progress Towards Goals Slow Progress due to Pain,Slow Progress due to Activity Tolerance Assessment Summary caregiver training completed and spouse was able to assist pt with mobility. pt with c/o increase R hip pain and unable to complete 14 steps. plan is for pt to stay on first level of the house and sleep on her recliner at this time. pt has out pt PT set up . Pt may go home when medically stable. Goals Bed Mobility Goal Independent Transfer Goal Independent Gait Goal Independent,Front Wheel Walker Gait Distance 200 Other Goals up/down 1 step using FWW SBA up/down 14 steps R rail SBA Days to Meet Goals 5 Frequency of Treatment Frequency Of Treatment Twice a Day Treatment Plan Physical Therapy Treatment Plan Bed Mobility Training,Transfer Training,Gait Training, Therapeutic Exercise,Balance Retraining,Post Op Education, Discharge Planning,Hot or Cold Pack,Neuromuscular Re-ed, Coordination Retraining,Manual Therapy Precautions Anterior Hip Precautions No Hip Extension,No Hip External Rotation Weight Bearing Status Weight Bearing Status Weight Bear as Tolerated Allowed Weight Bearing Amount (enter % RLE WBAT or #) (%) Recommendations To Nursing Amount of Assist Needed 1 Person Assist Discharge Recommendations PT Discharge Recommendations Home with Assistance, Outpatient PT Transportation Needs at Discharge Private Vehicle
--- NOTE | 2023-06-15 10:11 | PM.DS.1 ---
History of Present Illness History of Present Illness Date Patient Seen: 06/15/23 Time Patient Seen: 07:44 Chief complaint: Hip pain Narrative: See progress note Discharge Providers Provider Discharge Date: 06/15/23 Primary care physician: Haydee Burns DO Consults: 06/14/23 06:00 Consult to Anesthesiology Routine Comment: Consulting Provider: Anesthesiologist Reason for consultation: Regional block for post operative pain control 06/14/23 11:46 Consult to Discharge Planning Routine Comment: Consult to Occupational Therapy Evaluate & Treat Comment: Physician Instructions: Evaluate and treat Consult to Physical Therapy Evaluate & Treat Comment: Physician Instructions: post op TOM protocol Discharge provider: Israel Camilo PA-C Summary Hospital Course Discharge Diagnosis: Severe right hip OA Hospital Course: Right total hip arthroplasty anterior approach Same procedure as scheduled: Yes Indications: The patient has had progressively worsening right hip pain with radiographic changes consistent with arthritis. Non-operative management has failed and the patient has requested total hip replacement. The risks, benefits and alternatives to surgery were discussed with the patient prior to proceeding. Risks discussed included, but were not limited to, failure to relieve pain, leg length discrepancy, dislocation, stiffness, infection, nerve damage, deep venous thrombosis, pulmonary embolism, stroke, coma, heart attack, permanent paralysis and , as well as the potential need for eventual revision of the prosthetic. Surgeon: Tana Whitehead Sales Associate Key Holder: Israel Camilo Anesthesia Type: General and Spinal Operative Notes Findings: Right total hip arthroplasty anterior approach Closure Type: primary Specimen(s): none sent Prosthetic devices, grafts, tissues, transplants, or devices: Whitehead [employer] Nephew R3 50 cup, neutral poly liner, 32 x -3 Oxinium head,two 6.5 mm screws, size 1 standard collar polar stem Estimated Blood Loss (mL): 250 Patient admitted to the hospital for the above-mentioned procedure. Patient underwent right total hip arthroplasty, anterior approach on June 14, 2023. Patient back in her room recovering well as in stable condition. Patient has been mobilizing with physical therapy. Anterior hip precautions. Multimodal pain management. Discharge home today in stable condition. Exam Vital Signs (past 8 hours): - 06/15/23 08:00 Temperature 97 F L Pulse Rate 66 Respiratory Rate 18 Blood Pressure 121/69 Pulse Oximetry 99 Oxygen Flow Rate 0 Oxygen Delivery Method Room Air Oxygen Flow Rate 0 Narrative Exam Narrative: See progress note Objective Labs 06/15/23 05:43 Labs: Laboratory Results - last 24 hr 06/15/23 05:43 Hgb 10.4 L Hct 29.8 L PFSH Medical History Acid reflux Surgical History History of colonoscopy History of left hip replacement Social History household members: spouse Smoking Status: Former smoker alcohol intake: current Discharge Assessment & Plan Assessment and Plan Assessment: Patient progressing as expected status post right total hip arthroplasty, anterior approach Plan of Treatment: Multimodal pain management Weight-bearing as tolerated, anterior hip precautions Discharge home today in stable condition. Discharge Plan Discharge Plan Patient Disposition: Home Discharge orders & Medications Discharge Orders: Discharge (Order); Ordered 06/15/23 Ordered By: Israel Camilo Prescriptions: New acetaminophen 325 mg Tablet 650 mg PO Q6H Qty: 60 0RF aspirin 81 mg Tablet,Delayed Release (Dr/Ec) 81 mg PO BID Qty: 60 0RF polyethylene glycol 3350 17 gram Powder In Packet 17 g PO DAILY PRN (Reason: Constipation) Qty: 14 0RF ibuprofen 400 mg Tablet 400 mg PO Q4H Qty: 60 0RF Continued omeprazole 20 mg Tablet,Delayed Release (Dr/Ec) 20 mg PO BID Discontinued meloxicam 15 mg tablet 15 mg PO DAILY acetaminophen 325 mg Tablet 650 mg PO Q6H PRN (Reason: Pain (Scale Score 4-6)) Follow up/Referrals: Haydee Burns DO [Primary Care Provider] - Tana Whitehead MD [Physician] - As previously scheduled (Follow up with Dr Whitehead on 06/27/2023 @ 1:30 pm at [facility] office in [place].) Diet/Activity/Treatments Diet: Diet as Tolerated Activity: Weightbearing as tolerated to right leg. Anterior hip precautions. Cold/Heat Therapy: Ice to hip as needed for pain. Skin/Wound/Dressing Care Report to your healthcare provider any signs of infection, such as:: chills, fever, night sweats, unusual drainage and unusual redness Dressing: May shower. Leave Aquacel dressing in place until follow up in office. No bathing or otherwise soaking incision. Call the office if the dressing becomes saturated inside. Visit Report/Discharge Packet Instructions: DI for Hip Replacement Stand Alone Forms: Patient Portal/API, Surgery Discharge Discharge Data Primary Care Provider: Haydee Burns Attending Provider: Tana Whitehead
--- NOTE | 2023-06-15 10:32 | OT.IP.TRT ---
Current Diagnoses Unilateral primary osteoarthritis, right hip (06/14/23) Surgery Performed Operation Date: 06/14/23 07:45 Actual Procedures p Total Hip Arthroplasty/Anterior Approach(Right) - Tana Whitehead MD Occupational Therapy Treatment Note M2 OT-IP Current Condition Start: 06/14/23 16:49 Freq: Status: Active Protocol: Document 06/14/23 16:15 [facility] (Rec: 06/14/23 17:03 [facility] [id number]) Occupational Therapy Current Condition Current Condition Evaluation Date 06/14/23 Treatment Diagnosis S/P R TOM anterior approach Diagnosis Onset Date 06/14/23 Post Operative Precautions Anterior Hip Precautions No Hip Extension,No Hip External Rotation M3 OT- IP Subjective and Pain Start: 06/14/23 16:49 Freq: Status: Active Protocol: Document 06/15/23 10:32 [facility] (Rec: 06/15/23 12:10 [facility] [id number]) OT- Subjective Occupational Therapy Visit Type Visit Start Time 10:32 Visit Stop Time 10:43 Total Visit Minutes 11 Occupational Therapy Visit Comments Patient Comments Pt in the room with her and ready to go home. Patient/Caregiver Goals TO go home. OT Pain Assessment Pain When Pain Assessed During Mobility Pain Present Pain Present Pain Reported M4 OT- IP ADL's Start: 06/14/23 16:49 Freq: Status: Active Protocol: Document 06/15/23 10:32 [facility] (Rec: 06/15/23 12:10 [facility] [id number]) OT ADL-Dressing Comments OT Dressing Comments Re-emphasized to dress her right side first and take out last and that pt would benefit from LB dressing equipment or her to assist at home . OT ADL-Toileting Comments OT Toileting Comments Suggested again that pt get a BSC which can be placed next to the recliner or on the toilet and also can be used in the shower in needed or to get a shower chair with arm. M5 OT- IP IADL's Start: 06/14/23 16:49 Freq: Status: Active Protocol: Document 06/14/23 16:15 [facility] (Rec: 06/14/23 17:03 [facility] [id number]) OT-Instrumental Activities of Daily Living Deficits IADL Deficits Identified Deficits Home Safety Awareness Awareness of Need for Assistance at Home Good Awareness Ability to Problem Solve Emergency Able to Problem Solve Situations Home Safety Comments Pt a little groggy at this time as just having surgery today and her will assist at home for her needs. M6 OT- IP Functional Cognition Start: 06/14/23 16:49 Freq: Status: Active Protocol: Document 06/15/23 10:32 [facility] (Rec: 06/15/23 12:10 [facility] [id number]) Cognitive Factors Limiting Selfcare Function Cognitive Comments Cognitive Assessment Comments Pt still having a bit groggy and having difficulty to recall her hip precautions and what to do during mobility and ADL needs. Pt's able to states good understanding to be able to assist his for all needs. OT- Vision and Hearing OT- Hearing Assessment OT- Hearing Assessment WFL OT- Vision Assessment Visual Acuity Glasses All The Time M9 OT- IP Assessment and Plan Start: 06/14/23 16:49 Freq: Status: Active Protocol: Document 06/15/23 10:32 [facility] (Rec: 06/15/23 12:10 [facility] [id number]) OT Summary Assessment and Plan Potential Rehabilitation Potential Excellent Analytic Complexity at Evaluation Low Summary OT Impairments Pain,Strength,Balance, Functional Mobility,Grooming, Dressing,Toileting,Bathing, Toilet Transfers,Shower Transfers,Activity Tolerance Progress Towards Goals Progressing Toward Goals,Slow Progress due to Cognition Assessment Summary Pt remains a little groggy and pt's present to be able to go over all OT suggestions for ADL needs and that pt would benefit from LB dressing equipment , BSC, and shower chair. Discharge Recommendations OT Discharge Recommendations Home with Assistance, Outpatient PT Home Equipment Needs BSC, shower chair, LB dressing equipment Transportation Needs at Discharge Private Vehicle
--- NOTE | 2023-06-15 11:32 | CM.DANOTE ---
Initial DCP Assessment Note Reviewed chart and team rounds for pt status and anticipated d/c needs home. Met with pt and spouse at bedside, pt found to be dressed, alert/oriented, and preparing for d/c. Pain continues to be her main concern. No further d/c needs identified at this time. Pt will f/u OP with Dr. Whitehead, spouse is working on renting a hospital bed for home so that pt can remain on the lower floor and not need to climb stairs until she is further recovered. Spouse will transport home after cleared by OT. Payor: Medicare Attending: Tana Whitehead Discharge Planning/Care Management CM Discharge Assessment Start: 06/15/23 11:29 Freq: Status: Active Protocol: Document 06/15/23 11:29 [facility] (Rec: 06/15/23 11:31 [facility] [id number]) Discharge Planning Assessment Assigned Traveling Clerk MARIA R Ly Advance Directives? No History Provided By Patient,Medical Record Has Patient been admitted in last 30 No days? Prior Living Arrangements House Household Members spouse Type of transporation used prior to Drives own vehicle admit Caregiver for Another No Community Services used prior to Physical Therapy admission: DME Already Rented / Owned Bath Bench,Hospital Bed, Elevated Toilet Seat,FWW / Walker Patient/Family Preference OP PT Therapy Comment Pt will resume OP PT at Orth[facility] in [place]. Barriers to Discharge No Discharge Plan Home Community Services Hospice Transportation Arrangement Spouse Referrals Initiated None needed Review Status In Process Please Provide Date Initial DC 06/15/23 Assessment Was Performed Pre-Anesthesia Assessment Start: 05/28/23 07:47 Freq: Status: Complete Protocol: Document 05/28/23 07:47 [facility] (Rec: 05/28/23 08:18 [facility] [id number]) Pre-Anesthesia Assessment Patient Information Reviewed Via Phone Assessment Assessment Completed With Patient Diagnostic Results BMP/CMP,CBC,EKG Comment Echo at [facility] Primary Care Provider Haydee Burns Medical Clearance Received No Seen Specialist in Last 12 Months Yes Specialist Seen Orthopedist Preferred Language Spanish Height 167.64 cm Weight 52.163 kg Body Mass Index (BMI) 18.6 Hearing Ability Normal Visual Impairment Partially Limited Visual Assist Glasses Dentition Type Teeth, Natural Present Barriers to Learning None Other Aids No Hx Anesthesia Reactions No: Woke during a colonoscopy Hx Family Anesthesia Reaction No Hx Malignant Hyperthermia No Hx Blood Transfusions No Hx Blood Transfusion Reaction No Anesthesia Review Requested No Lift Operator No alcohol intake current alcohol intake frequency a few times a week Smoking Status Former smoker how long ago did patient quit smoking 1999 Substance Use Type does not use Pain Present Pain Reported Comment Right hip Musculoskeletal Symptoms Difficulty Walking Patient is completely paralyzed or No completely immobile Ambulatory Aid Crutches/cane/walker Prosthesis or Orthotic Device Front Wheel Walker Gait/Transferring Normal/bedrest/immobile Mental Status Oriented to own ability Is patient on oxygen? No Does patient have TAYLOR/SOB No Hx Sleep Apnea No Currently Taking a Beta [place] No Can You Climb a Flight of Stairs Without Yes SOB Hx Chest Pain No Hx SOB No Hx Syncope or Dizziness No Anti-Coagulant Therapy No Has a Animal Caretaker No Hx Pacemaker/ICD No Diet Type At Home Regular Dysphagia No Urinary Catheter Present No Hx Urinary Self Catheterization No Diabetes No HgbA1C 5.6 Date 04/11/23 Patient No Lactating No Hx Drug Resistant Organism No Presence of External or Internal Medical Yes: Lt TOM Devices Have you had any close contact with No someone diagnosed with COVID-19? Are you experiencing any of these No symptoms symptoms? Marital Status Lives With spouse Current Living Arrangements House Number of Floors (Floors) Two Floors Number of Stairs To Enter/Railing? 2/no Support System Spouse Does the Patient Have Assistance After Yes Surgery Patient Discharge Plan Description Return Home Feels Safe in Current Environment Yes Been Physically Hurt or Threatened By a No Person in Current Environment Do you have thoughts of harming yourself None or others? Are you currently considering suicide? No Do you have a plan to hurt yourself or No Plan others? Do You Have Any Spiritual Beliefs That No May Affect Your HC Choices? Do You Have Any Cultural Practices That No May Affect Your HC Choices? Who Can We Speak to About Patient's Care Dalton Farrar Identifying Code for Release of Patient declined Information Health Care Proxy/Next of Kin Dalton Farrar Health Care Proxy /[phone] Emergency Contact Name Dalton Farrar Emergency Contact /[phone] Advance Directives? No PAC Instructions Assistance for 24 hours post- op,Do not shave/clip surgical site,Durable medical equipment ,Medications to take/avoid, Nasal antibiotic,No ETOH/ petroleum product on skin DOS, NPO,Post-op transportation,Pre -surgical wash,Sensory aids, Sturdy shoes/comfortable clothes,Do not bring valuables and remove jewelry
--- NOTE | 2023-06-15 12:16 | PC.NURSE ---
Pt A&OX4. VSS, afebrile on RA. She is cleared by PT and OT for discharge and medically cleared by PA for discharge home today with her . She is able to walk with FWW and reports pain still elevated at7-9/10 in R hip. PA notified and cleared to give oxycodone 5 mg prn a little earlier with good effect. She verbalizes understanding of site care, s/sx of infection as well as medications, hip precautions and follow up appointment on 06/27 in [place]. She is escorted via w/ch with [employer] for discharge home today at 1215 pm.
== END 2023-06-15 12:15 | disposition home or self-care (01) ==
LOC: OR 06:27 → AC 06:33
PROVIDERS: PCP Student in an Organized Health Care Education/Training Program; Referring Provider Orthopaedic Surgery; Visit Provider Orthopaedic Surgery
PROC: (CPT 27130; principal; 2023-06-14 07:45)
DX: M16.11 Unilateral primary osteoarthritis, right hip (principal)
CPT/HCPCS: 27130; 36415; 73502; 76000; 85014; 85018; 97161; 97165; 97530; 97535; C1776; C9290; J0171; J0690; J1100; J1170; J2250; J2405; J2704; J3010